=== PATIENT | female | born 1980 | race Caucasian/White ===

== ENCOUNTER 2021-10-12 14:14 | Emergency (ER) | payer OTHER, SELFPAY ==
[2021-10-12 14:16] VITALS: BP 162/110; PULSE 84; RESP 16; TEMP 36.6; O2SAT 100
--- NOTE | 2021-10-12 17:19 | ED.EYEPROB ---
HPI - Eye Problem General Chief complaint: Eye Problems Stated complaint: eye redness and swelling Time Seen by Provider: 10/12/21 14:59 Source: patient Mode of arrival: ambulatory Limitations: no limitations History of Present Illness HPI Narrative: Patient presents for evaluation of left eye irritation. She reports tearing, redness, thick mucopurulent discharge from the left eye which all started this morning. She has a hx of bacterial conjunctivitis and current symptoms are consistent with those experienced in past with bacterial conjunctivitis. No one else has similar symptoms. She wears contacts but has removed them. No visual disturbance. She has no other complaints or concerns. Related Data Home Medications Medication Instructions Recorded Confirmed alprazolam 09/22/19 methadone 09/22/19 quetiapine 09/22/19 Allergies Allergy/AdvReac Type Severity Reaction Status Date / Time erythromycin base Allergy Unresponsiv Verified 10/12/21 15:00 e Review of Systems Review of Systems: CONSTITUTIONAL: Denies fever, chills, or sweats. EYES: Reports left eye irritation, redness and thick drainage. ENT: Denies rhinorrhea, congestion, sore throat, or otalgia. CARDIOVASCULAR: Denies chest pain, palpitations, or edema. RESPIRATORY: Denies cough or dyspnea. GASTROINTESTINAL: Denies abdominal pain, nausea, vomiting, or diarrhea. GENITOURINARY: Denies dysuria or hematuria. SKIN: Denies rash or itching. MUSCULOSKELETAL: Denies back pain, joint pain, or myalgia. NEUROLOGIC: Denies headache, numbness, dizziness, or weakness. PSYCHIATRIC: Denies anxiety or depression. [facility] Past Medical History Medical History Anxiety Asthma Surgical History Surgical History No pertinent past surgical history Family History Family History (Updated 10/12/21 @ 17:26 by MARY Gómez, ) Mother No pertinent family history Social History Social History (Updated 10/12/21 @ 17:27 by MARY Gómez, ) Smoking packs per day: 0.5 Smoking cigarettes per day: 10.0 Smoking status: Current every day smoker Alcohol intake: never Substance use: former Substance use type: heroin Gender identity (if verbalized by the patient): Female Spiritual care concerns: No Exam Narrative: GENERAL: Well-appearing, well-nourished, and in no acute distress. HEAD: Normocephalic, atraumatic. EYES: PERRLA and EOMI. mild left-sided conjunctival injection ENT: Nares clear, no rhinorrhea or epistaxis. Mucous membranes moist. Oropharynx without tonsillar hypertrophy exudate or other lesions. Bilateral TMs pearly kim nonbulging NECK: Supple. No adenopathy or masses. No carotid bruits or JVD CHEST: Clear to auscultation. No respiratory distress. No wheezes rales or rhonchi HEART: Regular rate and rhythm. No murmur heard. Normal peripheral pulses. ABDOMEN: Soft, nontender, nondistended, normal active bowel sounds. EXTREMITIES: Normal range of motion. No edema. SKIN: Warm, dry, no rash. NEURO: No focal deficits. Alert and oriented x3. PSYCH: Normal mood and affect. Course Course Emergency Course: This is a 41-year-old female who presented with complaints of left eye irritation, redness, mucopurulent discharge. Her reported history is consistent with bacterial conjunctivitis. Will treat with ofloxacin given the fact that she is a contact lens wearer. She knows not to wear contacts at this time. She was advised to follow up outpatient for further evaluation and treatment and return for worsening symptoms. Pt in agreement with plan of care. Vital Signs Vital signs: Vital Signs Temperature 36.6 C 10/12/21 14:16 Pulse Rate 84 10/12/21 14:16 Respiratory Rate 16 10/12/21 14:16 Blood Pressure 162/110 H 10/12/21 14:16 Pulse Oximetry 100 10/12/21 14:16 Temperature 36.6 C
== END 2021-10-12 17:40 | disposition home or self-care (01) ==
PROVIDERS: Emergency Provider Nurse Practitioner
DX: H10.32 Unspecified acute conjunctivitis, left eye (principal); F41.9 Anxiety disorder, unspecified; J45.909 Unspecified asthma, uncomplicated; F17.210 Nicotine dependence, cigarettes, uncomplicated
CPT/HCPCS: 99283

== ENCOUNTER 2022-03-18 17:33 | Emergency (ER) | payer OTHER, SELFPAY ==
[2022-03-18] VITALS (7 sets, daily range): BP systolic 139–155; BP diastolic 99–115; PULSE 92–112; RESP 18–96; TEMP 36.8; O2SAT 95–99
--- NOTE | ~2022-03-18 | XR_ITS ---
EXAMINATION: XR chest 1V portable INDICATION: Asthma, shortness of breath TECHNIQUE: Portable AP chest at 1809 hours COMPARISON: None available FINDINGS: The lungs are free of acute opacities. There is no pleural effusion or pneumothorax. The ca rdiomediastinal silhouette is normal. Thoracolumbar levocurvature is noted. IMPRESSION: 1. No acute cardiopulmonary abnormality. Reviewed, dictated and finalized at location F.
[2022-03-18] MEDS: IPRATROPIUM BR 0.02% INH SOLN 0.5 MG/2.5 ML VIAL INHALATION (17:45)
--- NOTE | 2022-03-18 17:47 | ECG_ITS ---
Measurements Intervals [place] Rate: 101 P: 75 [place]: 169 QRS: 61 QRSD: 76 T: -39 QT: 318 QTc: 414 Interpretive Statements SINUS TACHYCARDIA CANNOT RULE OUT SEPTAL INFARCT, AGE INDETERMINATE ST-T WAVE ABNORMALITY IN INFERIOR LEADS- CONSIDER ISCHEMIA BASELINE ARTIFACT- I, II, III, V1, V3-V6 ABNORMAL ECG Electronically Signed On 03-18-2022 18:17:24 CDT by Demond Jacobs D.O.
[2022-03-18] MEDS: IPRATROPIUM BR 0.02% INH SOLN 0.5 MG/2.5 ML VIAL 1.5 MG (17:56)
[2022-03-18] MEDS: MAGNESIUM SULF 2 GM/WATER 50ML 2 GM/50 ML BAG IVPB (18:03)
[2022-03-18] MEDS: methylPREDNISolone SOD SUCC 125 MG VIAL IV PUSH (18:03)
--- NOTE | 2022-03-18 19:53 | ED.SOB ---
HPI - SOB/Dyspnea General Chief Complaint: Shortness of Breath/Dyspnea Stated Complaint: SOB Time Seen by Provider: 03/18/22 17:43 Source: patient and family Mode of arrival: ambulatory Limitations: no limitations History of Present Illness HPI Narrative: Patient is 41 years old white female presented to the ED with shortness of breath for the last few days, is getting worse. History of asthma, ran out of albuterol nebulizer over 3 days ago. She denies any fever, chills, nausea, vomiting. Related Data Home Medications Medication Instructions Recorded Confirmed alprazolam 1 mg tablet 09/22/19 methadone 09/22/19 quetiapine 50 mg tablet 09/22/19 Allergies Allergy/AdvReac Type Severity Reaction Status Date / Time erythromycin base Allergy Unresponsiv Verified 10/12/21 15:00 e Review of Systems Review of Systems: All systems reviewed & are unremarkable except as noted in HPI and below PMFSH Past Medical History Medical History Anxiety Asthma Surgical History Surgical History No pertinent past surgical history Family History Family History Mother No pertinent family history Social History Social History Smoking packs per day: 0.5 Smoking cigarettes per day: 10.0 Smoking status: Current every day smoker Alcohol intake: never Substance use: former Substance use type: heroin Gender identity (if verbalized by the patient): Female Spiritual care concerns: No Exam Narrative: General appearance: Well-developed, well-nourished, restless, labored breathing Skin: Normal color Head: Normocephalic, nontraumatic Eyes: Clear conjunctiva ENT: Oropharynx normal, ears normal, nose normal Neck: Supple, nontender Chest and respiratory: Marked diminution of air entry bilaterally with fine wheezing mainly with expiration, unable to finish full sentence. Heart: Tachycardia Vascular: Normal peripheral pulses, normal capillary refill. Neurologic: Alert and oriented ?3, Course Course Emergency Course: Improved. Patient presents with asthma flare, secondary to bad weather today and running out of her albuterol medication. Patient got much better after using Xopenex every 20 minutes x 1 hour. Currently able to talk clearly, auscultation showed quite a bit of improvement, good air entry bilaterally, slight wheezing bilaterally. Patient requested to go home. Vital Signs Vital signs: Vital Signs Temperature 36.8 C 03/18/22 17:38 Pulse Rate 112 H 03/18/22 17:38 Respiratory Rate 19 03/18/22 17:38 Blood Pressure 155/115 H 03/18/22 17:38 Pulse Oximetry 99 03/18/22 17:38 Oxygen Delivery Room Air 03/18/22 17:38 Temperature 36.8 C 03/18/22 17:38 Pulse Rate 96 03/18/22 19:41 Respiratory Rate 23 H 03/18/22 19:41 Blood Pressure 149/99 H 03/18/22 18:31 Pulse Oximetry 96 03/18/22 18:31 Oxygen Delivery Room Air 03/18/22 17:48 MDM - SOB/Dyspnea Imaging Data Radiologist's impression: Impressions Chest X-Ray 03/18/22 18:14 IMPRESSION: 1. No acute cardiopulmonary abnormality. ECG Data EKG #1: ECG completion date: 03/18/22 ECG completion time: 20:08 Interpretation: Sinus tachycardia at 101, cannot rule out septal myocardial infarction, age of indeterminate, ST and T wave abnormality in inferior leads consider ischemia. Abnormal EKG Critical Care Time Critical Care Time Critical Care Time: Yes Total Critical Care Time: 30 Disc
--- NOTE | 2022-03-18 20:09 | ECG_ITS ---
Measurements Intervals [place] Rate: 89 P: 67 [place]: 164 QRS: 47 QRSD: 82 T: -63 QT: 341 QTc: 416 Interpretive Statements SINUS RHYTHM CANNOT RULE OUT SEPTAL MYOCARDIAL INFARCTION , PROBABLY OLD [40+ ms Q WAVE IN V1/V2] MODERATE T-WAVE ABNORMALITY, CONSIDER INFERIOR ISCHEMIA [-0.1+ mV T-WAVE IN II/aVF] ABNORMAL ECG COMPARED TO ECG 03/18/2022 17:50:08 HEART RATE HAS DECREASED Electronically Signed On 03-19-2022 11:29:34 CDT by Daryn Lopes M.D.
--- NOTE | 2022-03-19 09:19 | PC.NURSE ---
Peter called; insurance will not fill rx for proair click but will fill regular proair. EMILY Luke, change to regular proair.
== END 2022-03-18 20:12 | disposition home or self-care (01) ==
PROVIDERS: Emergency Provider Emergency Medicine
DX: J45.901 Unspecified asthma with (acute) exacerbation (principal); F17.210 Nicotine dependence, cigarettes, uncomplicated
CPT/HCPCS: 71045; 93005; 94640; 96365; 96366; 96375; 99284; J2930; J3475